=== PATIENT | male | born 1965 | race Caucasian/White ===

== ENCOUNTER 2023-07-27 18:10 | Emergency (ER) | payer MEDICAID ==
[~2023-07-27] VITALS: Ht 172.7 cm; Wt 80.0 kg
[2023-07-27] MEDS ORDERED: CefTRIAXone 2gm/D5W 50ml BAG 50 ML IV ONE (19:45)
[2023-07-27 20:31] LABS: ALANINE AMINOTRANSFERASE 36 U/L (12-78); ALBUMIN 3.9 G/DL (3.4-5.0); ALBUMIN/GLOBULIN RATIO 1.1 (1.1-1.5); ALKALINE PHOSPHATASE 42 IU/L (46-116); ANION GAP 7 (8-16); ASPARTATE AMINO TRANSFERASE 76 U/L (10-37); BILIRUBIN,TOTAL 0.3 MG/DL (0.1-1.0); BLOOD UREA NITROGEN 18 MG/DL (7-18); BUN/CREATININE RATIO 16.5 (10.0-20.0); C-REACTIVE PROTEIN 2.38 MG/DL (0.0-0.5); CALCIUM 9.8 MG/DL (8.5-10.1); CHLORIDE 102 MMOL/L (99-107); CREATININE 1.09 MG/DL (0.60-1.10); GLUCOSE 112 MG/DL (70-104); POTASSIUM 3.1 MMOL/L (3.5-5.1); SODIUM 140 MMOL/L (135-145); TOTAL CARBON DIOXIDE 30.7 MMOL/L (24-32); TOTAL PROTEIN 7.6 G/DL (6.4-8.2); eCRCL 71 ML/MIN; eGFR 69 ML/MIN
[2023-07-27 20:58] LABS: BASOPHILS # (AUTO) 0.1 X10'3 (0-0.2); BASOPHILS % (AUTO) 0.9 % (0-1); EOSINOPHILS # (AUTO) 0.1 X10'3 (0-0.9); EOSINOPHILS % (AUTO) 1.7 % (0-6); HEMATOCRIT 29.6 % (42.0-52.0); HEMOGLOBIN 10.1 g/dl (14.0-17.9); LYMPHOCYTES # (AUTO) 1.6 X10'3 (1.1-4.8); LYMPHOCYTES % (AUTO) 25.3 % (21-51); MEAN CORPUSCULAR HEMOGLOBIN 32.6 PG (27.0-31.0); MEAN CORPUSCULAR HGB CONC 34.2 g/dL (33.0-36.5); MEAN CORPUSCULAR VOLUME 95.3 FL (78-98); MEAN PLATELET VOLUME 7.9 FL (7.4-10.4); MONOCYTES # (AUTO) 0.4 X10'3 (0-0.9); MONOCYTES % (AUTO) 5.9 % (2-12); NEUTROPHILS # (AUTO) 4.1 X10'3 (1.8-7.7); NEUTROPHILS % (AUTO) 66.2 % (42-75); PLATELET COUNT 218 X10'3 (140-440); RED CELL DISTRIBUTION WIDTH 14.7 % (11.5-14.5); WHITE BLOOD COUNT 6.2 X10'3 (4.5-11.0)
[2023-07-27] MEDS ORDERED: SULF1TAB49 PO (21:05)
[2023-07-27 21:34] VITALS: BP 125/78; PULSE 68; RESP 16; TEMP 98.3; O2SAT 99
== END 2023-07-27 21:46 | disposition home or self-care (01) ==
LOC: ER 18:10
DX: B99.8 Other infectious disease (principal)
CPT/HCPCS: 36415; 73090; 73120; 80053; 84145; 85025; 86140; 96365; 99285; A6222; J0696; A6449